=== PATIENT | female | born 1990 ===

== ENCOUNTER 2017-12-15 15:30 | Emergency (ER) | payer BC, MEDICAID ==
[2017-12-15 16:32] VITALS: BP 137/85
--- NOTE | 2017-12-15 17:11 | RAD ---
Indication: RIGHT knee pain following injury. Lateral and posterior pain. Fell and heard a snap on Tuesday. Comparison: None. Technique: RIGHT knee: AP, tunnel, lateral, sunrise views. REPORT AND IMPRESSION: #. Moderate joint effusion. Negative for fracture or malalignment. Unremarkable soft tissue contours.
--- NOTE | 2017-12-15 18:34 | UC ---
Knee Pain HPI - HPI Summary HPI Summary: Patient is a 27-year-old female presenting to the ED with right knee pain. She states yesterday while carrying a 205lb man on her back she states her right knee "gave way." She endorses some mild swelling and pain to the posterior knee as well as the lateral side. Denies any medial knee pain. She states she feels laxity in the joint. Denies any erythema or warmth to the area. She denies any other injuries. Pain with full extension and full flexion. - History of Current Complaint Chief Complaint: UCLowerExtremity Stated Complaint: KNEE INJURY Time Seen by Provider: 12/15/17 16:38 Hx Obtained From: Patient Hx Last Menstrual Period: 12/14/17 ?: No Onset/Duration: Sudden Onset Severity Initially: Moderate Severity Currently: Moderate Pain Intensity: 8 Pain Scale Used: 0-10 Numeric Aggravating Factor(s): Movement, Weight Bearing Alleviating Factor(s): Rest, Position Associated Signs And Symptoms: Positive: Swelling Able to Bear Weight: No - Risk Factors Septic Arthritis Risk Factor: Negative Gout Risk Factor: Negative - Allergies/Home Medications Allergies/Adverse Reactions: Allergies Allergy/AdvReac Type Severity Reaction Status Date / Time amoxicillin Allergy Intermediate Vomiting Verified 12/15/17 16:32 Penicillins Allergy Intermediate vomitting Verified 12/15/17 16:32 Home Medications: Home Medications Control 12/15/17 [History] Budesonide/Formote 160/4.5(NF) [Symbicort 160/4.5 (NF)] 2 puff INH BID 12/15/17 [History Confirmed 12/15/17] Cetirizine* [ZyrTEC 10 MG TAB*] 10 mg PO DAILY 12/15/17 [History Confirmed 12/15] Montelukast Sodium TAB* [Singulair TAB*] 10 mg PO DAILY 12/15/17 [History Confirmed 12/15/17] PMH/Surg Hx/FS Hx/Imm Hx Previously Healthy: Yes - Surgical History Surgical History: None Surgery Procedure, Year, and Place: wisdom teeth - Family History Known Family History: Positive: None - Social History Occupation: Employed Full-time Lives: With Family Alcohol Use: Weekly Substance Use Type: None Smoking Status (MU): Heavy Every Day Tobacco Smoker Length of Time of Smoking/Using Tobacco: 10 yrs Review of Systems Constitutional: Negative Skin: Negative Eyes: Negative Cardiovascular: Negative Gastrointestinal: Negative Motor: Negative Neurovascular: Negative Musculoskeletal: Arthralgia Neurological: Negative Is Patient Immunocompromised?: No All Other Systems Reviewed And Are Negative: Yes Physical Exam Triage Information Reviewed: Yes Appearance: Well-Appearing, Well-Nourished Vital Signs: Initial Vital Signs Temp 97.8 F 12/15/17 16:27 Pulse 102 12/15/17 16:27 Resp 22 12/15/17 16:27 BP 137/85 12/15/17 16:27 Pulse Ox 100 12/15/17 16:27 Vital Signs Reviewed: Yes Eye Exam: Normal Neck exam: Normal Neck: Positive: Supple Respiratory: Positive: Chest non-tender Musculoskeletal: Positive: ROM Limited @ - R knee d/t pain Neurological Exam: Normal Psychological: Positive: Normal Response To Family Skin Exam: Normal Knee Pain Course/Dx - Course Course Of Treatment: During the course treatment, the patient's evaluated for knee pain. X-ray obtained which shows no acute findings except for joint effusion. Unable to assess for anterior drawer test or Debbie's due to pain and sensitivity from patient. Immobilizer given an orthopedic follow-up. Crutches given. She is given return precautions. - Differential Dx/Diagnosis Provider Diagnoses: knee pain Discharge - Sign-Out/Discharge Documenting (check all that apply): Patient Departure - Discharge Plan Condition: Stable Disposition: HOME Patient Education Materials: Swollen Knee Joint (ED), Knee Pain (ED) Forms: *Work Release Referrals: Chari Sims MD [Medical Doctor] - No Primary Care Phys,NOPCP [Primary Care Provider] - Additional Instructions: Please follow up with ortho Call tomorrow for an appt Ibuprofen 600mg three times daily ice Elevate Remain in knee immobilizer when not lying down Remain non weight bearing until follow up Crutches for ambulation - Billing Disposition and Condition Condition: STABLE Disposition: Home Attestation Statement User Type: Provider - I was available for consult. This patient was seen by the RAINA. The patient was not presented to, seen by, or examined by me. -Naz
== END 2017-12-15 17:48 | disposition home or self-care (01) ==
LOC: UCEAST 15:30
DX: M25.561 Pain in right knee (principal); F17.200 Nicotine dependence, unspecified, uncomplicated; Z88.0 Allergy status to penicillin
CPT/HCPCS: 99203; G0463

== ENCOUNTER → 2018-02-16 13:28 | Emergency (ER) | payer BC ==
--- NOTE | 2018-02-16 16:32 | UC ---
Skin Complaint HPI - HPI Summary HPI Summary: 28 yo female presents requesting lip piercing removal. She tells me that she went to get an MRI this morning and they told her that she needs her lip piercings out. She could not get them out and is requesting that they be cut. She tells me that they have been in for about 11 years. - History of Current Complaint Time Seen by Provider: 02/16/18 16:29 Hx Obtained From: Patient Hx Last Menstrual Period: 12/14/17 Current Severity: None - Allergy/Home Medications Allergies/Adverse Reactions: Allergies Allergy/AdvReac Type Severity Reaction Status Date / Time amoxicillin Allergy Intermediate Vomiting Verified 02/13/18 14:24 Penicillins Allergy Intermediate vomitting Verified 02/13/18 14:24 Review of Systems Constitutional: Negative Skin: Other - Lip piercings Respiratory: Negative Cardiovascular: Negative Neurological: Negative Psychological: Negative All Other Systems Reviewed And Are Negative: Yes PMH/Surg Hx/FS Hx/Imm Hx Respiratory History: Asthma - Surgical History Surgical History: Yes Surgery Procedure, Year, and Place: wisdom teeth - Family History Known Family History: Positive: None - Social History Occupation: Employed Full-time Lives: With Family Alcohol Use: Weekly Substance Use Type: None Smoking Status (MU): Heavy Every Day Tobacco Smoker Length of Time of Smoking/Using Tobacco: 10 yrs Physical Exam - Summary Physical Exam Summary: GENERAL: NAD. WDWN. No pain distress. SKIN: Lip studs in place just below the lower lip on the left and right (snake bites). No streaking, bleeding, or drainage. NECK: Supple. Nontender. No lymphadenopathy. CHEST: No accessory muscle use. Breathing comfortably and in no distress. CV: Pulses intact. Cap refill <2seconds NEURO: Alert. PSYCH: Age appropriate behavior. Triage Information Reviewed: Yes Vital Signs Reviewed: Yes Course/Dx - Course Course Of Treatment: Ring cutter was used to cut the piercings as they were titanium. Removed without difficulty. Pt tolerated well. - Diagnoses Provider Diagnoses: Piercing removal lower lip Discharge - Sign-Out/Discharge Documenting (check all that apply): Patient Departure All imaging exams completed and their final reports reviewed: No Studies - Discharge Plan Condition: Stable Disposition: HOME Referrals: No Primary Care Phys,NOPCP [Primary Care Provider] - Additional Instructions: If you develop a fever, shortness of breath, chest pain, new or worsening symptoms - please call your PCP or go to the ED. - Billing Disposition and Condition Condition: STABLE Disposition: Home
== END | disposition home or self-care (01) ==
LOC: UCEAST 13:28
DX: S00.551A Superficial foreign body of lip, initial encounter (principal); X58.XXXA Exposure to other specified factors, initial encounter; Y93.9 Activity, unspecified; Y92.9 Unspecified place or not applicable
CPT/HCPCS: 99211; G0463

== ENCOUNTER 2018-03-16 07:15 | Day surgery (SDC) | payer BC ==
[~2018-03-16 07:15] MED LIST: Buffered Lidocaine 0.9% SYRIN* 5 ML/SYR SYRINGE INTRADERM ONE; Dexamethasone TAB* 4 MG PO ONE; DiMENhydriNATE IV* 50 MG/ML VIAL IV PUSH PRN; Famotidine IV* 10 MG/ML 2 ML (20 mg) IV ONE; Naloxone* 0.4 MG/ML 1 ML VIAL IV PRN; Ondansetron TAB* 4 MG PO ONE; PROCHLORPERAZINE INJ 5 MG/ML 2 ML VIAL IV PRN; Scopolamine 1.5 mg* PATCH TRANSDERM PRN; fentaNYL* 50 MCG/ML 2 ML VIAL (100 MCG VIAL) IV PRN
[2018-03-16] MEDS ORDERED: Morphine VIAL* 10 MG/ML 1 ML VIAL ONE ×2 (07:25→09:11)
[2018-03-16] MEDS ORDERED: Dexamethasone TAB* 4 MG ONE (07:25)
[2018-03-16] MEDS ORDERED: Clindamycin 900 MG/D5W BAG(*) 900 MG/50 ML BAG IVPB ONE (07:25)
[2018-03-16] MEDS ORDERED: Famotidine IV* 10 MG/ML 2 ML (20 mg) ONE (07:25)
[2018-03-16] MEDS ORDERED: Ondansetron ODT TAB* 4 MG ONE (07:25)
[2018-03-16] MEDS ORDERED: KETAMINE HCL* 50 MG/ML 10 ML VIAL ONE (07:48)
[2018-03-16] MEDS ORDERED: Midazolam* 1 MG/ML 5 ML VIAL (5 MG) ONE (07:48)
[2018-03-16] MEDS ORDERED: fentaNYL* 50 MCG/ML 2 ML VIAL (100 MCG VIAL) ONE (07:48)
[2018-03-16] MEDS ORDERED: Bupivacaine 0.5% SDV PF* 30ML VIAL ONE (08:37)
[2018-03-16] MEDS ORDERED: Propofol* 10 MG/ML 20 ML BTL IV PUSH ONE (09:25)
[2018-03-16] MEDS ORDERED: Ketorolac INJ* 30 MG/ML 1 ML VIAL ONE (09:25)
[2018-03-16] MEDS ORDERED: Lidocaine 2% PF * 5 ML VIAL ONE (09:25)
[2018-03-16] MEDS ORDERED: PROCHLORPERAZINE INJ 5 MG/ML 2 ML VIAL ONE (09:51)
--- NOTE | 2018-03-16 11:09 | OP ---
Operative Report - Blank - Operative Report Date of Operation: 03/16/18 Note: PATIENT: Sona Manriquez DATE OF : 1990 DATE OF SURGERY: 03/16/2018 SURGEON: Jovany Arreaga MD [place] DIRECTOR: LESLIE Moore, whos assistance was necessary for positioning, retraction, help with instrumentation, and closure. ANESTHESIOLOGIST: Dr. Fox PREOPERATIVE DIAGNOSIS: Right knee ACL tear POSTOPERATIVE DIAGNOSIS: Right knee ACL tear OPERATION: Right knee arthroscopic ACL reconstruction with hamstring tendon autograft ANESTHESIA: LMA IMPLANTS: Arthrex TightRope for femoral fixation. Arthrex GraftBolt for tibial fixation. TOURNIQUET TIME: Less than 2 hours with a well-padded thigh tourniquet SPECIMENS: none ESTIMATED BLOOD LOSS: minimal COMPLICATIONS: none STATUS: Stable from the operating room to the recovery room and then home. INDICATIONS FOR PROCEDURE: Sona ruptured her right ACL. Both operative and non operative treatment alternatives were reviewed. Further, the nature and risks of surgery were reviewed in careful detail, in the office as well as the pre-operative holding area. Our discussions regarding the risks of surgery included, but were not limited to, infection, wound problems, nerve injury, neuroma, RSD, persistent symptoms, blood clot, failure of the surgery, re-rupture, post-traumatic arthritis, and even the remote chance of catastrophic complication, including loss of limb. DESCRIPTION OF PROCEDURE: The patient was seen in the preoperative holding unit and informed written consent was obtained. The appropriate extremity was marked. The patient was then brought to the operating room and carefully positioned on the operating room table. Anesthesia was induced. All bony prominences were padded with great care. A well-padded thigh tourniquet was placed. A chlorhexidine based pre- scrub was performed followed by a chloraprep prep and drape in standard sterile fashion. A surgical safety pause was then conducted in which we confirmed the appropriate patient, extremity, planned procedure, availability of equipment, indication and administration of prophylactic antibiotics, and DVT prophylaxis in the form of a compression boot on the non-surgical extremity. I began with an examination of the knee under anesthesia. She had gross laxity on Estelle testing and a positive pivot shift. We began with an Esmarch exsanguination of the limb and inflated the tourniquet. I then made a standard anterolateral knee arthroscopy portal. A diagnostic arthroscopy was performed. The articular cartilage appeared to be in good condition in all three compartments. No meniscal tears were seen. The ACL was confirmed to be ruptured. I then turned my attention to the hamstring autograft harvest. An approximately 4 cm incision was made over the pes anserinus. The sartorius fascia was then incised distally and the hamstring tendons were visualized from the deep aspect of the pes anserinus. The MCL was visualized on the bone and was left intact. The gracilis and semitendinosus tendons were dissected out. The ends of the tendon were whipstitched with a fiber loop suture. I then utilized a tendon stripper to harvest first the gracilis tendon and then the semi-semitendinosus tendon. Both tendons were robust and of good length. The tendons were then cleared of muscle on the back table and the other ends were again whipstitched with fiber loop sutures. These were quadrupled with the apex of the V being the Arthrex TightRope looped suture. The graft was sized to an 8 mm diameter. It was then placed on stretch while I proceeded with a knee arthroscopy. A bacitracin-soaked sponge covered the tendon. The arthroscope was reinserted into the knee and the remnant of the ACL was debrided to provide good visualization of the notch. The lateral wall of the notch was then cleared using a shaver as well as cautery. This was brought all the way back to the posterior edge of the femoral condyle. Additionally, a rene was made at the tibial insertion of the ACL onto the tibia, which was where I would later place my tibial tunnel. This was in line with the posterior aspect of the anterior horn of the lateral meniscus and on the lateral slope of the medial tibial spine. A femoral flip-cutter guide was then placed through the anterolateral portal to the anatomic spot of the ACL insertion onto the femur. The lateral femur was approached with an approximately 1 cm incision anterior to the posterior aspect of the iliotibial band. Using the guide and flip-cutter, I retrograde drilled an 8 mm femoral socket. The femoral socket was about 30 mm in length and was visualized through the anteromedial portal with the scope, showing a well- formed socket with good cortical bone laterally. A fiber wire suture was then placed through the femoral tunnel for later graft passage. Attention was then turned to the tibial tunnel. The tibial aiming guide was placed and a guidewire was drilled into the joint. I then utilized an 8 mm reamer to overdrill the guidewire and make the tibial tunnel. I then used a suture grasper through the tibial tunnel to grab the looped fiber wire suture and pulled it through the tibial tunnel. I then pulled the tight rope button through the tunnels and watched it flipped under direct visualization on the lateral femoral cortex. I then used a toggling maneuver with traction on the distal end of the graft to toggle the graft up through the tibial tunnel and into the femoral socket. I had previously marked out 20 mm of graft to ensure that at least this much was in the femoral socket, which was achieved. The knee was then cycled through full range of motion numerous times while holding tension on the graft distally. There was no anterior impingement. The knee was then brought to 30 of flexion and a reverse Estelle maneuver was performed. While holding the graft on tension, a nitinol guidewire and dilators were used, and then a GraftBolt sheath and screw were placed into the tibial tunnel, providing excellent fixation. This was an 8 mm GraftBolt. Excess graft was then removed distally. Estelle and pivot shift were then tested and the knee was very stable on Estelle and there was no pivot shift. Final arthroscopic images were obtained. There was no anterior impingement of the graft. All of the wounds were copiously irrigated. The sartorius fascia was closed and then all the wounds were closed in a layered fashion utilizing 0 vicryl, 3-0 Monocryl and 3-0 PDS. The portals were closed with 3-0 nylon sutures. A sterile dressing was then applied, as well as a FIONA stocking, Cryo/Cuff and Kittson brace with the knee locked in extension. The patient was then awakened from anesthesia and transferred to the recovery room in stable condition. There were no complications. All needle and sponge counts were correct at the end of the case. ATTESTATION: I attest I was present and scrubbed and performed the critical portions of the procedure myself. POSTOPERATIVE PLAN: She will remain toe-touch weight-bearing and follow-up in 2 weeks for likely suture removal. My post-op protocol/instructions were given to the patient. She already has a PT appt for next week. We will plan on Xarelto for 2 weeks postop, starting tomorrow.
[2018-03-16] MEDS ORDERED: Morphine VIAL* 4 MG/ML VIAL (1 ml vial) IV ONE (11:49)
[2018-03-16] MEDS ORDERED: oxyCODONE/Acetamin 5/325 MG* TAB ONE (11:49)
[2018-03-16] MEDS: oxyCODONE/Acetamin 5/325 MG* TAB PO PRN ×2 (11:50→12:51)
[2018-03-16] MEDS: Morphine VIAL* 4 MG/ML VIAL (1 ml vial) IV PRN ×2 (11:53→12:13)
[2018-03-16 12:59] VITALS: BP 148/97
[2018-03-19] MEDS ORDERED: Scopolamine PATCH Remove* 1 NOTE MISC PATCH OFF ONE (05:41)
== END 2018-03-16 13:32 | disposition home or self-care (01) ==
LOC: OR 07:15
PROVIDERS: ATTEND Orthopaedic Surgery
DX: S83.511A Sprain of anterior cruciate ligament of right knee, initial encounter (principal); X50.0XXA Overexertion from strenuous movement or load, initial encounter; Y93.89 Activity, other specified; Y92.9 Unspecified place or not applicable; Z72.0 Tobacco use; J45.909 Unspecified asthma, uncomplicated
CPT/HCPCS: 81025; A9270-GY; C1776; J0780; J1885; J2250; J2270; J2704; J3010; J8540